=== PATIENT | female | born 1995 | race Caucasian/White ===

== ENCOUNTER 2016-10-12 22:29 | Emergency (ER) | payer SELFPAY ==
[2016-10-12 22:35] VITALS: BP 137/82; PULSE 72; RESP 16; TEMP 97.9; O2SAT 98
--- NOTE | 2016-10-12 22:39 | EDPHY ---
H & P Stated Complaint: pt bitten by friends dog on face HPI/ROS: HPI CHIEF COMPLAINT: Dog bite to face HISTORY OF PRESENT ILLNESS: This patient very pleasant 21-year-old female denies any significant medical or surgical history she does take attention deficit hyperactivity disorder medication however no other medication she tells me tetanus shot is up-to-date. She was visiting a friend's residence went her small dog she thinks it is a chihuahua. she was seated on the couch she started to laugh and the dog lunged at her nipping her in the right side of her face next to her right eye. No eye involvement, no laceration obtain more of a superficial abrasions. Past Medical History: No significant medical history except for attention deficit hyperactivity disorder Past Surgical History: No significant surgical history Social History: [place] denies drug use alcohol tobacco products Family History: noncontributory ROS REVIEW OF SYSTEMS: A comprehensive 10 point review of systems is otherwise negative aside from elements mentioned in the history of present illness. Exam Constitutional triage nursing summary reviewed, vital signs reviewed, awake/ alert. Eyes normal conjunctivae and sclera, EOMI, PERRLA. no evidence of globe injury. HENT normal inspection, atraumatic, moist mucus membranes, no epistaxis, neck supple/ no meningismus, no raccoon eyes. Respiratory clear to auscultation bilaterally, normal breath sounds, no respiratory distress, no wheezing. Cardiovascular rate normal, regular rhythm, no murmur, no edema, distal pulses normal. Gastrointestinal soft, non-tender, no rebound, no guarding, normal bowel sounds, no distension, no pulsatile mass. Genitourinary no CVA tenderness. Musculoskeletal no midline vertebral tenderness, full range of motion, no calf swelling, no tenderness of extremities, no meningismus, good pulses, neurovascularly intact. Skin face: abrasions noted to be periorbital right-sided right lateral face there is small amount of swelling present no laceration no puncture wound, pink , warm, & dry, no rash, skin atraumatic. Neurologic awake, alert and oriented x 3, AAOx3, moves all 4 extremities equally, motor intact, sensory intact, CN II-XII intact, normal cerebellar, normal vision, normal speech. Psychiatric normal mood/affect. Heme/Lymph/Immune no lymphadenopathy. Differential Diagnosis: Includes but is not limited to in a particular order dog bite to face, wound care, need for Augmentin prescription. Medical Decision Making: This patient will need to fill out a dog bite form, her wound will be cleaned here there is no laceration that needs to be repaired she will be placed on Augmentin to prevent infection from dog bite. Re-evaluation: I do recommend the patient ice her room if she has soft tissue swelling, I also recommend that she complete her entire course of Augmentin should also use probiotics or yogurt while taking this antibiotic. She understands return to the emergency room she develops any worsening symptoms includes swelling of her face, evidence of infection which includes redness, swelling, drainage, pus or questions or concerns. Source: Patient - Personal History Current Tetanus Diphtheria and Acellular Pertussis (TDAP): Yes - Medical/Surgical History Hx Asthma: No Hx Chronic Respiratory Disease: No Hx Diabetes: No Hx Cardiac Disease: No Hx Renal Disease: No Hx Cirrhosis: No Hx Alcoholism: No Hx HIV/AIDS: No Hx Splenectomy or Spleen Trauma: No Other PMH: none - Social History Smoking Status: Never smoked Constitutional: Initial Vital Signs Temperature (C) 36.6 C 10/12/16 22:32 Heart Rate 72 10/12/16 22:32 Respiratory Rate 16 10/12/16 22:32 Blood Pressure 137/82 H 10/12/16 22:32 O2 Sat (%) 98 10/12/16 22:32 O2 Delivery Mode Room Air Allergies/Adverse Reactions: No Known Allergies Allergy (Unverified 10/12/16 22:36) Home Medications: Medication Instructions Recorded Amoxicillin/Clavulanate Pot 875 mg PO BID #14 tab 10/12/16 [Augmentin 875 MG TAB (*)] Departure - Departure Disposition: Home, Routine, Self-Care Clinical Impression: Dog bite Qualifiers: Encounter type: initial encounter Qualifier Code: (W54.0XXA) Bitten by dog, initial encounter Condition: Good Instructions: Animal Bite (ED) Additional Instructions: 1. Return to the emergency room if you develop any worsening symptoms includes worsening facial swelling, redness, drainage or signs of infection. 2. Please ice your wound. 3. Take Augmentin as prescribed. 4. I do recommend that you take this antibiotic with yogurt or probiotics. Stay well hydrated the drink lots of fluids. This antibiotic can cause diarrhea. Referrals: Honorio Jean MD [Primary Care Provider] - As per Instructions Prescriptions: Amoxicillin/Clavulanate Pot [Augmentin 875 MG TAB (*)] 875 mg PO BID #14 tab
[2016-10-12] MEDS ORDERED: AMOXICILLIN/CLAVULANATE POT 875/125 MG TAB PO ONE (22:43)
== END 2016-10-12 23:12 | disposition home or self-care (01) ==
DX: S01.85XA Open bite of other part of head, initial encounter (principal); W54.0XXA Bitten by dog, initial encounter